=== PATIENT | female | born 1940 | race Caucasian/White ===

== ENCOUNTER → 2018-06-30 | Outpatient (CLI) | payer OTHER ==
[~2018-06-30] VITALS: Ht 165.1 cm; Wt 96.6 kg
[~2018-06-30] MED LIST: ADULT LOW DOSE81 MG PO; ALOGLIPTIN25 MG PO; ASPIRIN325 PO; ATENOLOL 25 MG25 M1 PG; ATENOLOL 25 MG25 M1 PO; AVAPRO300 MG PO; CALTRATE-600 W1 EACH PO; CHLORTHALIDONE25 MG PO; ELIQUIS5 MG PO; FISH OIL 1,0001 EAC5 PO; FLEXERIL PO; GLUCOPHAGE XR500 MG PO; GLUCOPHAGE XR750 MG PO; GLUCOPHAGE500 MG PO; GLUCOSAMINE &1 EACH PO; GLUCOSAMINE-MS1 EAC3 PO; HYDROCODON-ACE1 EAC7 PO; IBUPROFEN 800800 M1 PO; IRBESARTAN-HCT1 EAC1 PO; MELOXICAM7.5 MG PO; METFORMIN PO; NEURONTIN 300300 M1 PO; NEURONTIN 300M300 M2 PO; OMEGA; PREMARIN CREAM; PROPAFENONE 22225 MG PO; TRAMADOL 50 MG50 MG PO; VICTOZA0.6 MG/0.1 SUBQ; VITAMIN D31000 UNIT PO; VITAMIN D400 UNI1 PO; XARELTO20 MG PO; ZIAC 10/6.25 MG10 MG PO
--- NOTE | 2018-06-30 16:52 | P ---
[facility] [place] [address] PROCEDURE REPORT Name: MEME ISRAEL Room #: REG [facility]#: [id number] Admission: 06/30/18 Attend Phys: Baldemar Amezcua MD Discharge: Date of : 40 Report #: [id number] THIS REPORT FOR: //name// CC: KEELEY Reyes BRIEF HISTORY: The patient is a 78-year-old woman with family history of colon cancer, son of colon cancer at age 43. Her father had colon cancer about age 70. Another son has polyps. PREOPERATIVE DIAGNOSES: Family history of colon cancer and rectal bleeding. POSTOPERATIVE DIAGNOSES: 1. A 5 mm sessile polyp, 60 cm. 2. Moderate sigmoid diverticulosis coli. 3. Moderate internal hemorrhoids, nonbleeding, but evidence of fissuring of 1 hemorrhoid. MEDICATIONS: Deep sedation with propofol per Anesthesia. SPECIMEN: Polyp from 60 cm. ESTIMATED BLOOD LOSS: 3 mL. PROCEDURE: Colonoscopy to cecum and terminal ileum with biopsy. FINDINGS: Prior to propofol sedation, the procedure of colonoscopy was discussed with the patient as well as potential risks and complications. She indicates she understands and desires to proceed. DESCRIPTION OF PROCEDURE: With the patient in left lateral decubitus position, digital examination was completed, which revealed evidence of hemorrhoids, but no evidence of active bleeding. Subsequently, the Olympus video colonoscope was introduced in the rectum, advanced under direct vision to the cecum. Done with minimal difficulty. Cecum was identified by the ileocecal valve and the appendiceal orifice. I was able to visualize the distal segment of the terminal ileum, which was inspected and noted to be unremarkable. At that point, the scope was slowly withdrawn and careful circumferential views obtained including retroflexion of the scope in the ascending colon. Upon slow withdrawal of the scope, the prep was good. The mucosa was within normal limits, normal vascular pattern, normal light reflex. As we withdrew the scope, no abnormalities were noted until about 60 cm, at which point a 5 mm sessile polyp was seen and removed by cold snare polypectomy and recovered. Scope was further withdrawn and no additional neoplastic lesions were seen on this examination. However, in the sigmoid colon, there was moderate sigmoid diverticular disease without [address] [address] PROCEDURE REPORT Name: MEME ISRAEL Room #: [facility]#: [id number] Admission: 06/30/18 Attend Phys: Baldemar Amezcua MD Discharge: Date of : 40 Report #: [id number] endoscopic evidence of diverticulitis. Scope was withdrawn in the rectum, no abnormalities were seen. However, on retroflexion, moderate internal hemorrhoids were seen. One of the hemorrhoids had a healing fissure. The fissure was seen, but there is no evidence of ongoing bleeding. The scope was withdrawn. The patient tolerated the procedure well. CONDITION OF THE PATIENT UPON DISCHARGE: Following procedure, the patient was drowsy, arousable and conversant and will be discharged home when fully ambulatory. INSTRUCTIONS TO THE PATIENT AND FAMILY AT THE TIME OF DISCHARGE: We will follow up on the path. However, due to family history, I suggest return in 5 years for a high risk screening colonoscopy. High fiber diet would be appropriate for the diverticular disease. I suggest Anusol-HC suppositories 1 nightly for 10 days for healing of the hemorrhoids. If bleeding continues to be a problem, surgical management may be indicated. Last colonoscopy was 8 years ago. Withdrawal time from the cecum was 9 minutes 45 seconds. <ELECTRONICALLY SIGNED> By: Baldemar Amezcua MD 06/30/18 1652 [id number] Baldemar Amezcua MD /nt
--- NOTE | 2018-07-03 15:06 | PATH ---
[facility] [address] [place] [address] PATHOLOGY RPT PROCEDURE Name: MERAZMELI EVANSCRISTIANA Bains Room #: REG [facility] Tom.#: [id number] Admission: 06/30/18 Date of : 40 Discharge: Report #: [id number] Path Case #: [id number] Accession Number: [id number] . 01 Material submitted: . POLYP AT 60 CM . 01 Clinical history: . Pre-OP DX: Rectal bleed, family history of colon cancer, diarrhea Post-OP DX: Colon polyps, hemorrhoids, diverticulosis . 02 Diagnosis: Polyp, at 60 cm, endoscopic biopsy: - Tubular adenoma. - Negative for high grade dysplasia. (IUV/db; 07/03/18) LBQ/07/03/2018 . 02 Electronically signed: . Kavitha Rebolledo MD, Pathologist NPI- [id number] . 01 Gross description: . Received in formalin labeled "Janeen Meraz, colon polyp 60 cm," is a single segment of cooper soft tissue measuring 0.3 cm in maximum dimension. The specimen is entirely submitted in cassette A1. (TSD; 06/30/2018) TOB/TOB . 02 Pathologist provided ICD-10: D12.6 . 02 CPT . 701152 Specimen Comment: A courtesy copy of this report has been sent to Specimen Comment: [phone], . Specimen Comment: Report sent to / DR GARCIA Performed at: [address] [facility], [place], [place] [id number] MD Franky Israel MD Phone: [phone] Performed at: [address] [id number] MD Kavitha Rebolledo MD Phone: [phone]
== END | disposition home or self-care (01) ==
LOC: GI 07:10
DX: D12.4 Benign neoplasm of descending colon (principal); K57.30 Diverticulosis of large intestine without perforation or abscess without bleeding; K64.8 Other hemorrhoids; I10 Essential (primary) hypertension; I48.92 Unspecified atrial flutter; E11.9 Type 2 diabetes mellitus without complications; H40.9 Unspecified glaucoma; Z79.01 Long term (current) use of anticoagulants; Z85.3 Personal history of malignant neoplasm of breast; Z90.49 Acquired absence of other specified parts of digestive tract; Z90.710 Acquired absence of both cervix and uterus; Z80.0 Family history of malignant neoplasm of digestive organs; Z83.71 Family history of colonic polyps; Z98.890 Other specified postprocedural states; Z88.0 Allergy status to penicillin; Z88.6 Allergy status to analgesic agent; Z79.899 Other long term (current) drug therapy
CPT/HCPCS: 62110; 62900

== ENCOUNTER 2018-11-10 16:42 | Emergency (ER) | payer OTHER ==
[~2018-11-10] VITALS: Ht 172.7 cm; Wt 98.0 kg
[2018-11-10 17:34] LABS: ABSOLUTE NEUTROPHILS 6.6 thou/uL (1.4-8.2); BASOPHILS 0.8 % (0.0-2.0); EOSINOPHILS 1.5 % (0.0-3.0); HEMOGLOBIN 13.8 gm/dL (12.0-15.0); LYMPHOCYTES 9.1 % (24.0-44.0); MCH 27.6 pg (26.0-34.0); MCHC 33.6 g/dL (28.0-37.0); MCV 82.2 fL (80.0-100.0); PLATELET COUNT 217 thou/uL (150-400); POLYS 76.6 % (36.0-66.0); RBC 4.99 mil/uL (4.20-5.00); RDW 14.3 % (10.5-14.5); WBC 8.6 thou/uL (4.0-11.0)
[2018-11-10 17:43] LABS: CALCIUM 9.9 mg/dL (8.5-10.1); CREATININE 1.1 mg/dL (0.6-1.0); POTASSIUM 3.6 mmol/L (3.5-5.1)
[2018-11-10] MEDS ORDERED: VENTOLIN HFA 1818 GM INH (18:29)
[2018-11-10 18:46] VITALS: BP 144/69
== END 2018-11-10 18:47 | disposition home or self-care (01) ==
LOC: ER 16:42
PROVIDERS: Nurse Practitioner
DX: J06.9 Acute upper respiratory infection, unspecified (principal); I10 Essential (primary) hypertension; E11.9 Type 2 diabetes mellitus without complications; I48.91 Unspecified atrial fibrillation; Z88.5 Allergy status to narcotic agent; Z88.0 Allergy status to penicillin; Z90.49 Acquired absence of other specified parts of digestive tract; Z90.710 Acquired absence of both cervix and uterus; Z90.89 Acquired absence of other organs; Z85.3 Personal history of malignant neoplasm of breast; Z90.12 Acquired absence of left breast and nipple

== ENCOUNTER 2018-11-12 02:44 | Emergency (ER) | payer OTHER ==
[~2018-11-12] VITALS: Ht 167.6 cm; Wt 95.3 kg
[~2018-11-12 02:44] MED LIST changes: +VENTOLIN HFA 1818 GM INH
[2018-11-12] MEDS ORDERED: ZOFRAN ODT4 MG PO (04:34)
[2018-11-12] MEDS ORDERED: GUAIFEN-CODEINE10 ML PO (04:34)
[2018-11-12 04:47] VITALS: BP 149/73
--- NOTE | 2018-11-12 22:41 | EKG ---
[address] [address] ELECTROCARDIOGRAM REPORT Name: MEME ISRAEL [id number] ������������������ Admission: 11/12/18 ������������������ Attend Phys: Discharge: 11/12/18 ������������������ Date of : 40 Report #: [id number] ����������������������������������������������������������������� [id number] THIS REPORT FOR: //name// [facility] ED Test Date: 2018-11-12 Test Time: 02:57:38 Pat Name: MEME RODRIGUEZONNELL Department: Room: Gender: F Dent Remover: STOGRETCHENO1 : 1940 Requested By: Jenny Mcdonough Order Number: [id number] MD: Renaldo Castellanos Measurements Intervals [place] Rate: 76 P: 38 [place]: 167 QRS: -4 QRSD: 100 T: 79 QT: 404 QTc: 455 Interpretive Statements Sinus rhythm Minimal ST depression, lateral leads Baseline wander in lead(s) V1 Compared to ECG 01/10/2015 08:58:09 ST (T wave) deviation now present T-wave abnormality no longer present Electronically Signed On 11-12-2018 22:41:12 CDT by Renaldo Castellanos [email or web address] ��������������������������������������������� <ELECTRONICALLY SIGNED> ���������������������������������������� By: Renaldo Castellanos MD ��������������������������������������������� 11/12/18 2241 0257 0257 Renaldo Castellanos MD /EPI
== END 2018-11-12 04:50 | disposition home or self-care (01) ==
LOC: ER 02:44
DX: J06.9 Acute upper respiratory infection, unspecified (principal); I10 Essential (primary) hypertension; E11.9 Type 2 diabetes mellitus without complications; I48.91 Unspecified atrial fibrillation; I48.92 Unspecified atrial flutter; Z90.49 Acquired absence of other specified parts of digestive tract; Z90.710 Acquired absence of both cervix and uterus; Z98.890 Other specified postprocedural states; Z85.3 Personal history of malignant neoplasm of breast; Z88.0 Allergy status to penicillin; Z88.5 Allergy status to narcotic agent; Z79.899 Other long term (current) drug therapy

== ENCOUNTER → 2019-12-11 | Outpatient (CLI) | payer OTHER ==
[~2019-12-11] MED LIST changes: +GUAIFEN-CODEINE10 ML PO; +ZOFRAN ODT4 MG PO
== END ==
LOC: SJCVC 12:55
PROVIDERS: ATTEND Internal Medicine
DX: I49.3 Ventricular premature depolarization (principal); R94.31 Abnormal electrocardiogram [ECG] [EKG]; I25.10 Atherosclerotic heart disease of native coronary artery without angina pectoris; I48.0 Paroxysmal atrial fibrillation; I10 Essential (primary) hypertension; E78.5 Hyperlipidemia, unspecified; E11.9 Type 2 diabetes mellitus without complications; E78.2 Mixed hyperlipidemia; Z79.01 Long term (current) use of anticoagulants; Z79.84 Long term (current) use of oral hypoglycemic drugs; Z79.899 Other long term (current) drug therapy

== ENCOUNTER → 2020-07-14 | Outpatient (CLI) | payer OTHER | LOC: SJCVC 13:27 | PROVIDERS: ATTEND Internal Medicine | DX: I25.10 Atherosclerotic heart disease of native coronary artery without angina pectoris (principal); I48.0 Paroxysmal atrial fibrillation; I10 Essential (primary) hypertension; E11.9 Type 2 diabetes mellitus without complications; E78.2 Mixed hyperlipidemia; Z79.01 Long term (current) use of anticoagulants; Z82.49 Family history of ischemic heart disease and other diseases of the circulatory system; Z79.84 Long term (current) use of oral hypoglycemic drugs; Z79.899 Other long term (current) drug therapy ==

== ENCOUNTER → 2021-01-12 | Outpatient (CLI) | payer OTHER | LOC: SJCVC 13:04 | PROVIDERS: ATTEND Internal Medicine | DX: I48.0 Paroxysmal atrial fibrillation (principal); I25.10 Atherosclerotic heart disease of native coronary artery without angina pectoris; I10 Essential (primary) hypertension; E11.9 Type 2 diabetes mellitus without complications; E78.2 Mixed hyperlipidemia; Z79.899 Other long term (current) drug therapy; Z88.1 Allergy status to other antibiotic agents; Z88.5 Allergy status to narcotic agent; Z88.8 Allergy status to other drugs, medicaments and biological substances; Z88.0 Allergy status to penicillin ==